=== PATIENT | female | born 1965 | race American Indian/Alaskan Native ===

== ENCOUNTER 2016-11-18 11:38 | Emergency (ER) | payer SELFPAY ==
--- NOTE | 2016-11-18 14:20 | XRay Report ---
LEFT SHOULDER: History: pain. Routine views demonstrate normal bony and soft tissue structures with normal joint alignment of the shoulder. IMPRESSION: Normal study.
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
[2016-11-18] MEDS ORDERED: VALIUM PO ONE (15:09)
[2016-11-18] MEDS ORDERED: TORADOL IM ONE (15:09)
[2016-11-18 16:14] VITALS: BP 133/93
== END 2016-11-18 16:15 | disposition home or self-care (01) ==
LOC: ED 11:38
DX: S16.1XXA Strain of muscle, fascia and tendon at neck level, initial encounter (principal); M54.5 Low back pain; M25.512 Pain in left shoulder; I10 Essential (primary) hypertension; K21.9 Gastro-esophageal reflux disease without esophagitis; V89.2XXA Person injured in unspecified motor-vehicle accident, traffic, initial encounter; Y93.9 Activity, unspecified; Y99.9 Unspecified external cause status; Y92.410 Unspecified street and highway as the place of occurrence of the external cause
CPT/HCPCS: 73030; 96372; 99284; J1885

== ENCOUNTER 2018-06-15 08:24 | Outpatient (CLI) | payer OTHER ==
--- NOTE | 2018-06-15 10:32 | XRay Report ---
XRAY LEFT HAND THREE VIEWS: 06/15/18 08:24:00 CLINICAL: Fall with pain and swelling. FINDINGS: An oblique mildly displaced fracture of the radial styloid and no other fracture identified. No dislocation. The joint spaces are normal. Mild soft tissue swelling of the proximal phalanx of the ring finger and moderate soft tissue swelling at the base of the thumb. No foreign body or soft tissue air. IMPRESSION: An acute traumatic mildly displaced fracture of the radial styloid. Soft tissue edema of the ring finger and at the base of the thumb.
--- NOTE | 2018-06-15 10:33 | XRay Report ---
XRAY LEFT WRIST THREE VIEWS:06/15/18 08:24:00 CLINICAL: Fall and wrist pain. FINDINGS: A mildly displaced fracture of the radial styloid no other fracture. The carpal bones are intact. The distal ulna and the proximal metacarpals are intact. Mild soft tissue swelling at the wrist. No firm body or soft tissue air. IMPRESSION: An acute traumatic mildly displaced fracture of the radial styloid and mild soft tissue swelling at the wrist.
--- NOTE | 2018-06-15 11:12 | XRay Report ---
XRAY LEFT SHOULDER THREE VIEWS: 06/15/18 08:24:00 CLINICAL: Fall and left shoulder pain. FINDINGS: No fracture or dislocation. Normal glenohumeral joint. Normal AC joint. The soft tissues are normal. IMPRESSION: Normal study.
--- NOTE | 2018-06-15 11:13 | XRay Report ---
LEFT ELBOW THREE VIEWS: 06/15/18 08:24:00 CLINICAL: Fall and left elbow pain. FINDINGS: Normal bones, joints and soft tissues. No fracture or dislocation. IMPRESSION: Normal.
--- NOTE | 2018-06-15 11:14 | XRay Report ---
XRAY LEFT HIP THREE VIEWS: 06/15/18 08:24:00 CLINICAL: Fall and left hip pain. FINDINGS: No fracture or dislocation. Mild osteoarthritis with narrowing of the superior joint space. No osteophytes. Normal soft tissues. IMPRESSION: Mild osteoarthritis and no apparent traumatic injury.
== END 2018-06-15 08:25 | disposition home or self-care (01) ==
LOC: SPVIMAG 08:24
PROVIDERS: ATTEND Internal Medicine
DX: S52.512A Displaced fracture of left radial styloid process, initial encounter for closed fracture (principal); M16.12 Unilateral primary osteoarthritis, left hip; M25.522 Pain in left elbow; M25.512 Pain in left shoulder; M25.432 Effusion, left wrist; I10 Essential (primary) hypertension; K21.9 Gastro-esophageal reflux disease without esophagitis; Z87.891 Personal history of nicotine dependence; X58.XXXA Exposure to other specified factors, initial encounter; Y93.89 Activity, other specified; Y92.89 Other specified places as the place of occurrence of the external cause; Y99.8 Other external cause status

== ENCOUNTER 2020-07-16 12:54 | Outpatient (CLI) | payer OTHER ==
--- NOTE | 2020-07-16 14:03 | Mammography Report ---
DIGITAL SCREENING MAMMOGRAM WITH TOMOSYNTHESIS WITH CAD, 07/16/2020 CLINICAL INFORMATION / INDICATION: Routine Screening Mammography. TECHNIQUE: Digital bilateral 2D and 3D mammography with tomosynthesis was obtained in the craniocaud al and mediolateral oblique projections. Computer-Aided Detection (CAD) analysis was used for interp retation of this study. COMPARISON: 07/04/2019, 12/22/2016 FINDINGS: Breast Density: The breasts are almost entirely fatty. No dominant mass, suspicious calcifications, or architectural distortion in either breast. A previously seen calcified nodule in the 6:00 position middle depth of the right breast is unchanged . A middle depth left retroareolar clip is unchanged. IMPRESSION: No mammographic evidence of malignancy. Follow up recommendation: Routine yearly BI-RADS Category 2: Benign. A "normal" or negative report should not discourage follow up or biopsy of a clinically significant f inding. A written summary of these findings will be mailed to the patient. The patient will be entered into a mammography reporting system which will generate a reminder letter for the patient's next appointmen t at the appropriate interval. The [employer] recommends yearly mammograms starting at age 40 and continuing as l malik as a woman is in good health. Breast MRI is recommended for women with an approximate 20-25% or greater lifetime risk of breast cancer, including women with a strong family history of breast or ova [place] cancer or who have been treated for Hodgkin's disease. Signer Name: Bashir Alfaro MD Signed: 07/16/2020 1:59 PM Workstation Name: [id number]
--- NOTE | 2020-07-16 14:46 | Mammography Report ---
DIGITAL SCREENING MAMMOGRAM WITH TOMOSYNTHESIS WITH CAD, 07/16/2020 CLINICAL INFORMATION / INDICATION: Routine Screening Mammography. TECHNIQUE: Digital bilateral 2D and 3D mammography with tomosynthesis was obtained in the craniocauda l and mediolateral oblique projections. Computer-Aided Detection (CAD) analysis was used for interpre tation of this study. COMPARISON: 07/04/2019, 12/22/2016 FINDINGS: Breast Density: The breasts are almost entirely fatty. No dominant mass, suspicious calcifications, or architectural distortion in either breast. A previously seen calcified nodule in the 6:00 position middle depth of the right breast is unchanged . A middle depth left retroareolar clip is unchanged. IMPRESSION: No mammographic evidence of malignancy. Follow up recommendation: Routine yearly BI-RADS Category 2: Benign. A "normal" or negative report should not discourage follow up or biopsy of a clinically significant f inding. A written summary of these findings will be mailed to the patient. The patient will be entered into a mammography reporting system which will generate a reminder letter for the patient's next appointmen t at the appropriate interval. The [employer] recommends yearly mammograms starting at age 40 and continuing as l malik as a woman is in good health. Breast MRI is recommended for women with an approximate 20-25% or g reater lifetime risk of breast cancer, including women with a strong family history of breast or ovar radha cancer or who have been treated for Hodgkin's disease. Signer Name: Bashir Alfaro MD Signed: 07/16/2020 2:42 PM Workstation Name: [id number]
== END 2020-07-16 12:55 | disposition home or self-care (01) ==
LOC: SPVWC 12:54
PROVIDERS: ATTEND Surgery
DX: Z12.31 Encounter for screening mammogram for malignant neoplasm of breast (principal); N63.15 Unspecified lump in the right breast, overlapping quadrants
CPT/HCPCS: 77063; 77067